=== PATIENT | male | born 1980 | race Caucasian/White ===

== ENCOUNTER 2018-01-15 08:53 | Observation (INO) | payer OTHER ==
[~2018-01-15] VITALS: Ht 185.4 cm; Wt 90.7 kg
[~2018-01-15 08:53] MED LIST: ALBUTEROL2.5 MG/31 INH; BENZONATATE200 MG PO; GLUCOSAMINE 1,1 EACH PO; GLUCOSAMINE CH1 EAC3 PO; LEVAQUIN 750 M750 MG PO; LEVAQUIN25 MG/ML PO; LOVASTATIN; MUCINEX TA600 MG/TA1 PO; MULTIVITAMINS1 EAC6 PO; MULTIVITAMINS1 EAC7 PO; PROAIR HFA8.5 GM INH; SAW PALMETTO160 MG PO; SUPER B COMPLE1 EAC2 PO; SUPER B COMPLE1 EAC3 PO; TESSALON PERLE100 M1 PO; VITAMIN C1000 MG PO; VITAMIN C500 M1 PO; VITAMIN D-32000 UNIT PO; VITAMIN D31000 UNI2 PO; XARELTO; ZOLOFT; ZPAK PO; ZYRTEC10 M2 PO
[2018-01-15 08:59] VITALS: BP 178/123
[2018-01-15] MEDS ORDERED: ASPIRIN325 PO (09:02)
[2018-01-15] MEDS ORDERED: TESTONE CI200 MG/1 M IM (09:03)
[2018-01-15] MEDS ORDERED: VIAGRA25 MG PO (09:03)
[2018-01-15 09:28] LABS: ABSOLUTE EOSINOPHILS 0.3 thou/uL (0.0-0.7); ABSOLUTE LYMPHOCYTES 1.6 thou/uL (0.8-5.3); ABSOLUTE MONOCYTES 0.7 thou/uL (0.0-1.2); ABSOLUTE NEUTROPHILS 4.4 thou/uL (1.6-8.1); BASOPHILS 0.4 %; EOSINOPHILS 4.6 %; HEMATOCRIT 53.4 % (42.0-52.0); HEMOGLOBIN 18.1 gm/dL (14.0-18.0); LYMPHOCYTES 22.8 %; MCH 33.4 pg (26.0-34.0); MCHC 33.8 g/dL (28.0-37.0); MCV 98.8 fL (80.0-100.0); MONOCYTES 10.2 %; MPV 7.6 fl. (7.2-11.1); NUCLEATED RBCS 0 /100WBC; PLATELET COUNT* 225 thou/uL (150-400); RBC 5.41 mil/uL (4.50-6.00); RDW-CV 12.4 % (10.5-14.5); WBC 7.2 thou/uL (4.0-11.0)
[2018-01-15 09:35] LABS: CALCIUM 8.1 mg/dL (8.5-10.1); CREATININE 1.3 mg/dL (0.6-1.3)
[2018-01-15 09:36] LABS: POTASSIUM 4.1 mmol/L (3.5-5.1)
[2018-01-15 09:57] LABS: URINE BLOOD 3+ (Negative); URINE CLARITY SL CLOUDY; URINE COLOR YELLOW; URINE GLUCOSE-RANDOM NEGATIVE (Negative); URINE KETONES TRACE (Negative); URINE LEUKOCYTES NEGATIVE (Negative); URINE NITRITE NEGATIVE (Negative); URINE PROTEIN TRACE (Negative); URINE SPECIFIC GRAVITY 1.025 (1.005-1.030); URINE UROBILINOGEN 0.2 E.U./dl (0.2-1.0)
[2018-01-15 10:02] LABS: ICTOTEST (BILI CONFIRMATORY) Negative (Negative); URINE BILIRUBIN 1+ (Negative)
[2018-01-15 10:05] LABS: APTT 28.1 Seconds (25.0-31.3); INR 1.2
[2018-01-15 10:06] LABS: BACTERIA None Seen /HPF (None Seen); CASTS None Seen /LPF (None Seen); CRYSTALS None Seen /LPF (None Seen); SQUAMOUS NONE SEEN /LPF (0-3); URINE RBC >20 Many /HPF (0-2); URINE WBC 0-5 Rare /HPF (0-5)
[2018-01-15 12:17] LABS: URINE BILIRUBIN NEGATIVE (Negative); URINE BLOOD 3+ (Negative); URINE CLARITY CLEAR; URINE COLOR YELLOW; URINE GLUCOSE-RANDOM NEGATIVE (Negative); URINE KETONES 1+ (Negative); URINE LEUKOCYTES NEGATIVE (Negative); URINE NITRITE NEGATIVE (Negative); URINE PROTEIN NEGATIVE (Negative); URINE UROBILINOGEN 0.2 E.U./dl (0.2-1.0)
[2018-01-15 12:30] LABS: BACTERIA 1-9 Few /HPF (None Seen); CRYSTALS None Seen /LPF (None Seen); HYALINE CASTS 0-3 Few /LPF (None Seen); MUCUS 0-3 Light strn/LPF (None Seen); SQUAMOUS 0-3 Few /LPF (0-3); URINE RBC >20 Many /HPF (0-2); URINE WBC 0-5 Rare /HPF (0-5)
[2018-01-15 16:14] VITALS: BP 110/58
[2018-01-15 16:29] VITALS: BP 110/58
[2018-01-15 16:33] VITALS: BP 110/58
[2018-01-15 20:00] VITALS: BP 132/88
[2018-01-16 06:45] LABS: ABSOLUTE EOSINOPHILS 0.2 thou/uL (0.0-0.7); ABSOLUTE MONOCYTES 0.6 thou/uL (0.0-1.2); HEMOGLOBIN 16.5 gm/dL (14.0-18.0); MCV 98.4 fL (80.0-100.0); WBC 6.9 thou/uL (4.0-11.0)
[2018-01-16 06:46] LABS: ABSOLUTE LYMPHOCYTES 1.2 thou/uL (0.8-5.3); ABSOLUTE NEUTROPHILS 4.9 thou/uL (1.6-8.1); BASOPHILS 0.4 %; EOSINOPHILS 2.6 %; HEMATOCRIT 48.6 % (42.0-52.0); LYMPHOCYTES 17.2 %; MCH 33.4 pg (26.0-34.0); MONOCYTES 8.3 %; MPV 7.6 fl. (7.2-11.1); NUCLEATED RBCS 0 /100WBC; PLATELET COUNT* 226 thou/uL (150-400); POLYS 71.5 %; RBC 4.94 mil/uL (4.50-6.00); RDW-CV 12.5 % (10.5-14.5)
[2018-01-16 10:14] VITALS: BP 126/72
[2018-01-16] MEDS ORDERED: PHENAZOPYRIDIN200 M2 PO (13:03)
[2018-01-16] MEDS ORDERED: IBUPROFEN 200200 M1 PO (13:04)
[2018-01-16 13:05] VITALS: BP 126/72
[2018-01-16] MEDS ORDERED: TYLENOL EXTRA500 MG PO (13:05)
[2018-01-16 13:40] VITALS: BP 126/72
== END 2018-01-16 13:30 | disposition home or self-care (01) ==
LOC: M.ERS 08:53 → M.ORTHSURG 15:16 → M.TBA-ER 15:16 → M.ORTHSURG 15:16
PROVIDERS: Personal Emergency Response Attendant; ADMIT Internal Medicine
DX: S39.94XA Unspecified injury of external genitals, initial encounter (principal); D62 Acute posthemorrhagic anemia; I48.91 Unspecified atrial fibrillation; J45.909 Unspecified asthma, uncomplicated; X58.XXXA Exposure to other specified factors, initial encounter; Y93.89 Activity, other specified; Y92.89 Other specified places as the place of occurrence of the external cause; Y99.8 Other external cause status

== ENCOUNTER 2018-03-25 03:17 | Emergency (ER) | payer OTHER ==
[~2018-03-25] VITALS: Ht 185.4 cm; Wt 93.0 kg
[~2018-03-25 03:17] MED LIST changes: +ASPIRIN325 PO; +IBUPROFEN 200200 M1 PO; +PHENAZOPYRIDIN200 M2 PO; +TESTONE CI200 MG/1 M IM; +TYLENOL EXTRA500 MG PO; +VIAGRA25 MG PO
[2018-03-25 04:07] LABS: INFLUENZA A ANTIGEN None Detected (None Detect); INFLUENZA B ANTIGEN None Detected (None Detect)
[2018-03-25] MEDS ORDERED: ALBUTEROL2.5 MG/3 M INH (04:25)
[2018-03-25] MEDS ORDERED: PROMETHAZINE-C473 ML PER TUBE (04:25)
[2018-03-25 04:33] VITALS: BP 134/81
== END 2018-03-25 04:36 | disposition home or self-care (01) ==
LOC: M.ERS 03:17
PROVIDERS: Emergency Medicine
DX: J06.9 Acute upper respiratory infection, unspecified (principal); J45.909 Unspecified asthma, uncomplicated; I48.91 Unspecified atrial fibrillation